=== PATIENT | female | born 1965 | race American Indian/Alaskan Native ===

== ENCOUNTER 2017-05-05 11:58 | Outpatient (CLI) | payer OTHER ==
--- NOTE | 2017-05-05 12:53 | XRay Report ---
XRAY RIGHT HIP TWO VIEWS: 05/05/17 11:58:00 CLINICAL: Right hip pain. FINDINGS: No fracture or dislocation.Moderate osteoarthritis with superior acetabular eburnation and mild narrowing of the joint space. Similar changes in the left hip. The pelvic bones are intact. The SI joints are normal. Normal soft tissues. IMPRESSION: Moderate osteoarthritis.
--- NOTE | 2017-05-05 15:16 | XRay Report ---
XRAY RIGHT SHOULDER THREE VIEWS: 05/05/17 11:58:00 CLINICAL: Right shoulder pain. FINDINGS: Normal glenohumeral alignment and normal glenohumeral joint. Normal AC joint. Prominent downsloping of the acromion and narrowing of the subacromial space. Mild irregularity at the greater tuberosity of the humerus. No fracture or dislocation. No bone lesion. Normal soft tissues. IMPRESSION: Mild degenerative change with a prominent downsloping acromion producing narrowing of the subacromial space.
== END 2017-05-05 11:59 | disposition home or self-care (01) ==
LOC: SPVIMAG 11:58
PROVIDERS: ATTEND Orthopaedic Surgery
DX: M16.11 Unilateral primary osteoarthritis, right hip (principal); M19.011 Primary osteoarthritis, right shoulder